=== PATIENT | female | born 1980 | race Caucasian/White ===

== ENCOUNTER 2020-07-03 12:45 | Inpatient (IN) | payer BC ==
[~2020-07-03] VITALS: Ht 162.6 cm; Wt 72.1 kg
[2020-07-11] VITALS (9 sets, daily range): BP systolic 118–136; BP diastolic 70–97; PULSE 67–85; TEMP 97.9–98.5
--- NOTE | 2020-07-11 08:34 | NUR ---
Pt arrived to [facility] [place] easily and independently. Pt alert and oriented x 4 and was appropriate in conversation. Pt was able to correctly indicate the reason for today's procedure. Consent was thoroughly reviewed and pt agreed and signed. Upon assessment, pt's lung sounds were CTA and heart tones were regular and S1S2. Radial and pedal pulses were easily palpable and equal bilaterally. Pt denies numbness/tingling and denies pain except 2/10 achiness from the hotel bed she slept in last night. Abdomen was soft, nontender and flat. BS heard in all 4 quadrants. No evidence of swelling in LE. Reviewed with patient the anticipated course of today's events including orientation to room, bathrooms, call light. 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 Pt also mentioned that she did not take metoprolol this am despite recommendcations from [employer] to take. Notified Reji Murrell with BP of 136/97, and he said OK to proceed without that med administration. Pt has no questions at this time and she agrees with plan.
[2020-07-11] MEDS ORDERED: KAPSPARGO SPRIN25 MG PO (08:52)
[2020-07-11] MEDS ORDERED: PRINIVIL10 MG PO (08:52)
[2020-07-11] MEDS ORDERED: HYDRODIURIL50 MG PO (08:53)
[2020-07-11] MEDS ORDERED: COLACE 100100 MG/CAP PO (12:50)
[2020-07-11] MEDS ORDERED: NORCO 325 MG-51 TAB PO (12:50)
--- NOTE | 2020-07-11 19:26 | NUR ---
RECEIVED CHANGE OF SHIFT REPORT FROM DAY SHIFT NURSE.
[2020-07-12 00:21] VITALS: BP 119/84; PULSE 68; TEMP 99.2
[2020-07-12 04:57] VITALS: BP 118/80; PULSE 66; TEMP 98.9
[2020-07-12 07:07] LABS: BASO % 0.1 % (0.0-2.0); EOS % 0.2 % (0-4.0); GRAN # 8.5 (1.4-6.5); GRAN % 76.5 % (42.2-75.2); HEMOGLOBIN 11.6 g/dl (12.5-16.0); LYMPH # 1.7 (1.2-3.4); LYMPH % 14.9 % (20.0-51.0); MEAN CELL VOLUME 97 fl (80.0-100.0); MEAN CORPUSCULAR HEMOGLOBIN 32 pg (27.0-31.0); MEAN CORPUSCULAR HGB CONC 33 g/dl (33.0-37.0); MEAN PLATELET VOLUME 9.7 fl (7.4-10.4); MONO # 0.9 (0.1-0.6); MONO % 7.9 % (1.7-9.3); PLATELET COUNT 303 K/mm3 (130-400); RED BLOOD COUNT 3.58 M/mm3 (4.10-5.30); REDCELL DISTRIBUTION WIDTH-CV 12.6 % (11.5-14.5)
[2020-07-12 07:18] LABS: CALCIUM 8.9 mg/dL (8.4-10.2); CREATININE, serum 0.82 (0.52-1.25); POTASSIUM 3.9 mmol/L (3.4-5.0)
[2020-07-12 07:21] LABS: HEMATOCRIT 34.8 % (37.0-47.0)
--- NOTE | 2020-07-12 07:22 | NUR ---
CHANGE OF SHIFT REPORT GIVEN TO DAY SHIFT NURSEKATARINA.
[2020-07-12 08:00] VITALS: BP 126/66; PULSE 75; TEMP 98.1
--- NOTE | 2020-07-12 08:00 | NUR ---
Patient in bed resting. Alert and oriented x 3. Assessment complete. Lap x 5 with edges well approimated. RAUL drain with serosanguinous drainage present, drain site with drainage present on dressing. Contreras to DD with clear yellow urine present. Denies further needs at this time.
--- NOTE | 2020-07-12 11:17 | NUR ---
Discontinued rojas and RAUL per orders. Patient tolerated procedure well. Denies needs at this time.
--- NOTE | 2020-07-12 12:40 | NUR ---
Discharge education provided to patient. Educated on signs and symptoms of infection. Educated on when to call provider and scheduling follow up appointment. All questions answered. Patient states she is a nurse. INT discontinued, catheter tip intact. Pain medications given prior to discharge, patient up to restroom voiding without difficulties. Patient up independently in room. Patient ambulated out with surgical staff.
== END 2020-07-12 12:40 | disposition home or self-care (01) | DRG 658 ==
LOC: INPTSU 07-11 08:29 → SURG 07-11 10:00 → JCC 07-11 16:48 → INPTSU 07-11 16:48 → JCC 07-12 12:40
PROVIDERS: ADMIT Urology
PROC: 8E0W4CZ Robotic Assisted Procedure of Trunk Region, Percutaneous Endoscopic Approach (ICD-10-PCS; 2020-07-11)
PROC: 0TB14ZX Excision of Left Kidney, Percutaneous Endoscopic Approach, Diagnostic (ICD-10-PCS; 2020-07-11)
PROC: 0TB14ZZ Excision of Left Kidney, Percutaneous Endoscopic Approach (ICD-10-PCS; principal; 2020-07-11 10:00)
DX: C64.2 Malignant neoplasm of left kidney, except renal pelvis (principal); D17.71 Benign lipomatous neoplasm of kidney; N28.89 Other specified disorders of kidney and ureter; I10 Essential (primary) hypertension; Z87.891 Personal history of nicotine dependence
CPT/HCPCS: A4314; J0360; J0690; J1100; J1170; J2175; J2250; J2270; J2405; J2704; J2795; J7030; J7120